=== PATIENT | female | born 1995 | race Caucasian/White ===

== ENCOUNTER 2021-08-24 21:37 | Outpatient (CLI) | payer OTHER ==
[2021-08-24 22:32] LABS: HEMOGLOBIN 11.7 gm/dl (12.3-15.3); RED BLOOD COUNT 3.78 M/UL (4.00-5.10); WHITE BLOOD COUNT 12.8 K/UL (4.5-11.0)
[2021-08-24 23:02] LABS: BUN/CREATININE RATIO 11 (0-10)
[2021-08-28] MEDS ORDERED: TRANDATE 200 M200 MG PO (18:41)
== END 2021-08-25 07:49 | disposition home or self-care (01) ==
LOC: GENOP 21:37
PROVIDERS: Obstetrics & Gynecology
DX: O16.3 Unspecified maternal hypertension, third trimester (principal); O99.283 Endocrine, nutritional and metabolic diseases complicating pregnancy, third trimester; E55.9 Vitamin D deficiency, unspecified; O99.343 Other mental disorders complicating pregnancy, third trimester; F41.9 Anxiety disorder, unspecified; O34.219 Maternal care for unspecified type scar from previous cesarean delivery; Z3A.32 32 weeks gestation of pregnancy
CPT/HCPCS: 80053; 81001; 82247; 82248; 82570; 84156; 84550; 85025; 85379; 85384; 85610; 85730; 96372; 96375; C9113; J0702